=== PATIENT | male | born 1950 | race Caucasian/White ===

== ENCOUNTER → 2018-03-18 14:52 | Outpatient (CLI) | payer MEDICARE, SELFPAY ==
[2018-03-18 15:26] LABS: Vitamin D,25 Hydroxy 17.5 ng/mL (29.95-100.01)
== END ==
PROVIDERS: Family Provider Family Medicine; PCP Family Medicine; Referring Provider Family Medicine; Visit Provider Family Medicine
DX: E55.9 Vitamin D deficiency, unspecified (principal)
CPT/HCPCS: 82306

== ENCOUNTER 2018-06-20 13:50 | Emergency (ER) | payer MEDICARE, SELFPAY ==
[2018-06-20 13:51] VITALS: BP 128/88; PULSE 91; RESP 18; TEMP 36.1; O2SAT 98; BMI 37.0
--- NOTE | 2018-06-20 14:29 | EKG12_ITS ---
Test Reason : N/V Blood Pressure : / mmHG Vent. Rate : 085 BPM Atrial Rate : 085 BPM P-R Int : 238 ms QRS Dur : 096 ms QT Int : 368 ms P-R-T Axes : 013 -17 -30 degrees QTc Int : 437 ms Sinus rhythm with 1st degree A-V block Minimal voltage criteria for LVH, may be normal variant ST & T wave abnormality, consider anterolateral ischemia Abnormal ECG Confirmed by KVNG GARCIA, SALVADOR ([id number]), film editor TEE VERA ([id number]) on 06/24/2018 11:42:48 AM Referred By: PHILIP Confirmed By:SALVADOR CALDERON MD
--- NOTE | 2018-06-20 14:46 | ED.DCSUM_ITS ---
- ER Visit Summary Date of Service: 06/20/18 Chief Complaint: Nausea, vomiting, diarrhea History of Present Illness: The patient is a 67 M who is otherwise healthy presents with nausea, vomiting, diarrhea. The patient's son was recently diagnosed with Andree virus. He states that about 4 in the morning, he woke with abdominal cramping. He states he had an episode of vomiting. He states he had 2 more episodes of vomiting and then 2 episodes of loose watery diarrhea. He states that he has pain when he is cramping. He denies any fevers but has had some chills. He has had prior cholecystectomy and does take medication for hypertension but is otherwise been in his normal state of health. He denies any blood in the emesis or the diarrhea. Physical Examination: Vital signs reviewed General: Well-nourished, well-developed Head: Normocephalic, atraumatic Eyes: Pupils equal and reactive, extraocular muscles intact Neck, supple, no lymphadenopathy Heart: Regular rate and rhythm Respiratory: No distress, clear bilaterally Abdomen: Soft, nontender, nondistended, no peritoneal signs Back: Nontender Extremities: Nontender, no edema, no cords Skin: Normal color no rash Neuro: Alert and oriented, no focal or lateralizing deficits Test Results: [] Emergency Department Course and Treatment: The patient presents with nausea, vomiting, diarrhea. His abdomen is soft and nontender. He has no reproducible tenderness. He did have recent exposure to Andree virus. IV was established. He was given fluids and Zofran. He had total resolution of his symptoms. His labs are relatively unremarkable. On reevaluation, he still resting comfortably. He is able to tolerate oral fluids. I do feel that this is viral in nature. I do not see a clear indication for radiology. She was counseled concerning symptoms. He will be discharged home. Treatment Plan: [] Disposition: Discharge Impression: 1. Viral gastroenteritis This note was generated with [employer] dictation software. It may contain incorrect words, spelling, and punctuation that were not noted in review of the chart prior to signing ED Disposition - Plan for ED Patient: Instructions: ED Gastroenteritis Viral Prescriptions: Ondansetron [Zofran Odt] 4 mg PO Q8H PRN PRN #10 tab PRN Reason: Nausea Dicyclomine HCl [Bentyl] 20 mg PO TIDAC #20 cap Referrals: Cebul,Jose Juan A III, MD [Primary Care Provider] -
[2018-06-20] MEDS: 0.9% Normal Saline 1,000 ML 1000 ML IV (15:27)
[2018-06-20] MEDS: Ondansetron 4 MG/2 ML Vial IV (15:27)
[2018-06-20 15:36] LABS: Absolute Lymphocyte Count 1.24 X10^3/ul (0.83-4.51); Absolute Neutrophil Count 11.1 X10^3/uL (2.0-7.7); Basophil# 0.02 X10^3/uL; Basophil% 0.2 % (0-1); Eosinophil# 0.01 X10^3/uL; Eosinophils% 0.1 % (0-5); Hematocrit 45.1 % (40-54); Hemoglobin 15.1 g/dl (13.0-16.5); Lymphocyte # 1.24 X10^3/ul (4.0); Lymphocyte % 9.9 % (19-41); Mean Corp Hgb Conc 33.5 g/gl (32-36); Mean Corpuscular Hgb 29.3 pg (27.0-32.0); Mean Corpuscular Volume 87.4 fL (80-94); Mean Platelet Vol. 9.5 fl (6.2-12.0); Monocyte# 0.05 X10^3/uL; Monocyte% 0.4 % (0-10); Neutrophil # 11.12 X10^3/uL (2.7-7.7); Neutrophil % 89.1 % (47-70); Platelet Count 276 K/mm3 (150-450); RBC Distribution Width CV 12.9 % (11.6-14.6); RBC Distribution Width SD 41.3 fl (35.1-43.9); Red Blood Count 5.16 M/mm3 (4.6-6.2); White Blood Count 12.5 K/mm3 (4.4-11.0)
[2018-06-20 15:37] LABS: POSITIVE COUNT NO; POSITIVE DIFFERENTIAL NO; POSITIVE MORPHOLOGY NO
[2018-06-20 15:50] VITALS: BP 141/81; PULSE 74; RESP 16; O2SAT 94
[2018-06-20 15:59] LABS: ALB/GLOB Ratio 0.9 RATIO (0.9-2.4); AST(SGOT) 32 U/L (15-37); Alanine Aminotransfer ALT/SGPT 57 U/L (16-61); Albumin, Serum 3.4 g/dL (3.2-5.0); Alkaline Phosphatase 74 U/L (45-117); Anion Gap 10 (5-15); BUN 13 mg/dL (7-18); BUN/Creat Ratio 15.1 RATIO (10-20); Calcium,Total 8.9 mg/dL (8.5-10.1); Chloride 105 mmol/L (98-107); Creatinine, Serum 0.86 mg/dL (0.70-1.30); EST Glomerular Filtration Rate 93 mL/min (>60); Est Glom Filt Rate - Afr Amer 113 mL/min (>60); Estimated Creatinine Clearance 78.43 ml/min; Globulin 3.8 g/dL (2.2-4.2); Glucose 130 mg/dL (74-106); Lipase 130 U/L (73-393); Protein, Total 7.2 g/dL (6.4-8.2); Sodium Level 139 mmol/L (136-145)
[2018-06-20 16:45] VITALS: BP 133/71; PULSE 71; RESP 18; O2SAT 92
== END 2018-06-20 16:50 | disposition home or self-care (01) ==
LOC: ED 15:34
PROVIDERS: Emergency Provider Emergency Medicine; Family Provider Family Medicine; PCP Family Medicine
DX: A08.4 Viral intestinal infection, unspecified (principal); I10 Essential (primary) hypertension; Z90.49 Acquired absence of other specified parts of digestive tract; Z79.899 Other long term (current) drug therapy
CPT/HCPCS: 80053; 83690; 85025; 93005; 96361; 96374; 99283; J7030; A4216; J2405

== ENCOUNTER → 2019-03-13 11:10 | Outpatient (CLI) | payer MEDICARE, SELFPAY ==
[2019-03-13 11:58] LABS: Vitamin D,25 Hydroxy 28.7 ng/mL (29.95-100.01)
[2019-03-13 11:59] LABS: AST(SGOT) 24 U/L (15-37); Alanine Aminotransfer ALT/SGPT 46 U/L (16-61); Albumin, Serum 3.7 g/dL (3.2-5.0); Alkaline Phosphatase 71 U/L (45-117); Anion Gap 9 (5-15); BUN 12 mg/dL (7-18); BUN/Creat Ratio 13.4 RATIO (10-20); Calcium,Total 9.4 mg/dL (8.5-10.1); Chloride 103 mmol/L (98-107); Cholesterol 207 mg/dL (200); EST Glomerular Filtration Rate 89 mL/min (>60); Est Glom Filt Rate - Afr Amer 107 mL/min (>60); Globulin 3.8 g/dL (2.2-4.2); Glucose 102 mg/dL (74-106); High Density Lipoprotein 29 mg/dL; Potassium 3.8 mmol/L (3.5-5.1); Protein, Total 7.5 g/dL (6.4-8.2); Sodium Level 140 mmol/L (136-145); Thyroid Stim Hormone (TSH) 1.46 uIU/mL (0.358-3.74); Triglycerides 249 mg/dL; Very Low Density Lipoprotein 50 mg/dL (5-40)
[2019-03-13 12:21] LABS: PTHIN 135.2 pg/mL (18.4-80.1)
== END ==
PROVIDERS: Family Provider Family Medicine; PCP Family Medicine; Referring Provider Family Medicine; Visit Provider Family Medicine
DX: E21.1 Secondary hyperparathyroidism, not elsewhere classified (principal); E78.5 Hyperlipidemia, unspecified; I10 Essential (primary) hypertension; E55.9 Vitamin D deficiency, unspecified; E03.9 Hypothyroidism, unspecified
CPT/HCPCS: 80053; 80061; 82306; 83970; 84443

== ENCOUNTER → 2020-03-23 | Outpatient (CLI) | payer MEDICARE, SELFPAY ==
[2020-03-23 16:09] LABS: PTHIN 161.3 pg/mL (18.4-80.1)
[2020-03-23 16:12] LABS: ALB/GLOB Ratio 1.1 RATIO (0.9-2.4); AST(SGOT) 25 U/L (15-37); Alanine Aminotransfer ALT/SGPT 48 U/L (16-61); Albumin, Serum 3.9 g/dL (3.2-5.0); Alkaline Phosphatase 78 U/L (45-117); Anion Gap 9 (5-15); BUN 12 mg/dL (7-18); BUN/Creat Ratio 14.7 RATIO (10-20); Calcium,Total 9.7 mg/dL (8.5-10.1); Chloride 102 mmol/L (98-107); Cholesterol 234 mg/dL (200); Creatinine, Serum 0.82 mg/dL (0.70-1.30); EST Glomerular Filtration Rate 99 mL/min (>60); Est Glom Filt Rate - Afr Amer 119 mL/min (>60); Globulin 3.6 g/dL (2.2-4.2); Glucose 96 mg/dL (74-106); High Density Lipoprotein 34 mg/dL; Potassium 3.7 mmol/L (3.5-5.1); Protein, Total 7.5 g/dL (6.4-8.2); Sodium Level 138 mmol/L (136-145); Thyroid Stim Hormone (TSH) 2.22 uIU/mL (0.358-3.74); Triglycerides 296 mg/dL; Very Low Density Lipoprotein 59 mg/dL (5-40)
[2020-03-23 16:15] LABS: Vitamin D,25 Hydroxy 32.9 ng/mL
== END | disposition home or self-care (01) ==
LOC: LABSPEC 13:14
PROVIDERS: PCP Family Medicine; Referring Provider Family Medicine; Visit Provider Family Medicine
DX: E78.5 Hyperlipidemia, unspecified (principal); I10 Essential (primary) hypertension; E55.9 Vitamin D deficiency, unspecified; E21.1 Secondary hyperparathyroidism, not elsewhere classified; E03.9 Hypothyroidism, unspecified
CPT/HCPCS: 80053; 80061; 82306; 83970; 84443

== ENCOUNTER → 2021-04-11 12:22 | Outpatient (CLI) | payer MEDICARE, SELFPAY ==
[2021-04-11 13:32] LABS: Hemoglobin A1c 5.4 % (3.8-5.6)
[2021-04-11 13:33] LABS: Cholesterol 224 mg/dL (200); High Density Lipoprotein 37 mg/dL; Thyroid Stim Hormone (TSH) 2.63 uIU/mL (0.358-3.74); Triglycerides 252 mg/dL; Very Low Density Lipoprotein 50 mg/dL (5-40)
== END ==
PROVIDERS: PCP Family Medicine; Referring Provider Family Medicine; Visit Provider Family Medicine
DX: E03.9 Hypothyroidism, unspecified (principal); E78.5 Hyperlipidemia, unspecified; E66.01 Morbid (severe) obesity due to excess calories; Z68.37 Body mass index [BMI] 37.0-37.9, adult
CPT/HCPCS: 80061; 83036; 84443

== ENCOUNTER → 2021-04-13 | Outpatient (CLI) | payer MEDICARE, SELFPAY ==
[2021-04-13 13:13] LABS: Vitamin D,25 Hydroxy 35.1 ng/mL
[2021-04-13 13:33] LABS: PTHIN 191.3 pg/mL (18.4-80.1)
== END | disposition home or self-care (01) ==
LOC: LABSPEC 12:41
PROVIDERS: PCP Family Medicine; Visit Provider Family Medicine
DX: E83.52 Hypercalcemia (principal); E55.9 Vitamin D deficiency, unspecified; E21.1 Secondary hyperparathyroidism, not elsewhere classified
CPT/HCPCS: 82306; 82330; 83970